=== PATIENT | male | born 1980 | race American Indian/Alaskan Native ===

== ENCOUNTER 2019-05-06 13:15 | Emergency (ER) | payer SELFPAY ==
[2019-05-06 13:30] VITALS: BP 140/97
--- NOTE | 2019-05-06 13:39 | Event Note ---
ED Screening Note Date of service: 05/06/19 Time: 13:37 ED Screening Note: This is a 38 y.o. M. that presents to the ER with nausea and vomiting for 3 days. Reports weakness and decreased appetite. Denies abdominal pain, diarrhea, chest pain, or palpitations. This initial assessment/diagnostic orders/clinical plan/treatment(s) is/are subject to change based on patients health status, clinical progression and re- assessment by fellow clinical providers in the ED. Further treatment and workup at subsequent clinical providers discretion. Patient/guardian urged not to elope from the ED as their condition may be serious if not clinically assessed and managed. Initial orders include: Labs
[2019-05-06] MEDS ORDERED: NACL 0.9% 1000 ML 1,000 ML IV ONE (14:10)
[2019-05-06] MEDS ORDERED: ZOFRAN IV ONE (14:11)
--- NOTE | 2019-05-06 14:14 | Emergency Department Report ---
- General Chief complaint: Nausea/Vomiting/Diarrhea Stated complaint: WEAKNESS/VOMIT BLOOD Time Seen by Provider: 05/06/19 13:37 Source: patient, family Mode of arrival: Ambulatory Limitations: No Limitations - History of Present Illness Initial comments: Mr. Doe is a healthy 38-year-old male without significant past medical history for the past several days has felt generally weak. Has been coughing up blood. No vomiting. Poor appetite. Denies abdominal pain. Denies chest pain. Positive generalized malaise. MD Complaint: generalized weakness -: Gradual, days(s) (3) Location: generalized Severity: moderate Consistency: constant Improves with: none Worsens with: exertion Context: recent illness Associated Symptoms: other (coughing up blood) - Related Data Previous Rx's Medication Instructions Recorded Last Taken Type HYDROcodone/APAP 10-325 [[place] 1 each PO Q6HR PRN #12 tablet 12/30/13 Unknown Rx 10/325] Ondansetron [Zofran Odt] 4 mg PO Q6H PRN #8 tab.rapdis 12/30/13 Unknown Rx Doxycycline Hyclate [Doxycycline 100 mg PO Q12HR 7 Days #14 tab 05/06/19 Unknown Rx Hyclate TAB] Promethazine [Phenergan] 25 mg PO Q6HR PRN #10 tab 05/06/19 Unknown Rx Allergies Allergy/AdvReac Type Severity Reaction Status Date / Time No Known Allergies Allergy Unverified 12/30/13 15:16 ED Review of Systems ROS: Stated complaint: WEAKNESS/VOMIT BLOOD Other details as noted in HPI Comment: All other systems reviewed and negative Constitutional: malaise Respiratory: cough Gastrointestinal: nausea. denies: abdominal pain, vomiting ED Past Medical Hx - Past Medical History Previous Medical History?: No - Surgical History Past Surgical History?: Yes Additional Surgical History: thumb - Social History Smoking Status: Unknown if ever smoked Substance Use Type: None - Medications Home Medications: Home Medications Medication Instructions Recorded Confirmed Last Taken Type HYDROcodone/APAP 10-325 [[place] 1 each PO Q6HR PRN #12 tablet 12/30/13 Unknown Rx 10/325] Ondansetron [Zofran Odt] 4 mg PO Q6H PRN #8 tab.rapdis 12/30/13 Unknown Rx Doxycycline Hyclate [Doxycycline 100 mg PO Q12HR 7 Days #14 tab 05/06/19 Unknown Rx Hyclate TAB] Promethazine [Phenergan] 25 mg PO Q6HR PRN #10 tab 05/06/19 Unknown Rx ED Physical Exam - General Limitations: No Limitations General appearance: alert, in no apparent distress - Head Head exam: Present: atraumatic, normocephalic - Eye Eye exam: Present: normal appearance - ENT ENT exam: Present: mucous membranes moist - Neck Neck exam: Present: normal inspection, full ROM - Respiratory Respiratory exam: Present: normal lung sounds bilaterally. Absent: respiratory distress, wheezes, rales, rhonchi - Cardiovascular Cardiovascular Exam: Present: regular rate, normal rhythm, normal heart sounds. Absent: systolic murmur, diastolic murmur, rubs, gallop - GI/Abdominal GI/Abdominal exam: Present: soft, normal bowel sounds. Absent: distended, tenderness, guarding, rebound - Rectal Rectal exam: Present: deferred - Extremities Exam Extremities exam: Present: normal inspection - Back Exam Back exam: Present: normal inspection - Neurological Exam Neurological exam: Present: alert, oriented X3 - Psychiatric Psychiatric exam: Present: normal affect, normal mood - Skin Skin exam: Present: warm, dry, intact, normal color. Absent: rash ED Course Vital Signs 05/06/19 13:24 Temperature 98.7 F Pulse Rate 50 L Respiratory 18 Rate Blood Pressure 140/97 O2 Sat by Pulse 97 Oximetry ED Medical Decision Making - Lab Data Result diagrams: 05/06/19 14:05 05/06/19 13:56 - Radiology Data Radiology results: report reviewed CXR NAP according to radiology - Medical Decision Making acute bronchitis, due to severe symptoms, antibiotics are indicated rx: doxycycline, promethazine Critical care attestation.: If time is entered above; I have spent that time in minutes in the direct care of this critically ill patient, excluding procedure time. ED Disposition Clinical Impression: Acute bronchitis Disposition: DC-01 TO HOME OR SELFCARE Is pt being admited?: No Does the pt Need Aspirin: No Condition: Stable Instructions: Acute Bronchitis (ED) Prescriptions: Doxycycline Hyclate [Doxycycline Hyclate TAB] 100 mg PO Q12HR 7 Days #14 tab Promethazine [Phenergan] 25 mg PO Q6HR PRN #10 tab PRN Reason: Nausea Referrals: PRIMARY CARE, [Primary Care Provider] - 3-5 Days DAVID ROWELL MD [Staff Physician] - 3-5 Days Forms: Work/School Release Form(ED)
[2019-05-06 14:34] LABS: Basophils # (Auto) 0.1 K/mm3 (0.0-0.1); Basophils % (Auto) 0.7 % (0.0-1.8); Eosinophils % (Auto) 0.1 % (0.0-4.3); Hematocrit 47.2 % (35.5-45.6); Hemoglobin 15.4 gm/dl (11.8-15.2); Lymphocytes % (Auto) 16.3 % (13.4-35.0); Mean Corpuscular HGB Conc 33 % (32-34); Mean Corpuscular Volume 89 fl (84-94); Monocytes # (Auto) 1.3 K/mm3 (0.0-0.8); Platelet Count 313 K/mm3 (140-440); Red Blood Count 5.31 M/mm3 (3.65-5.03); Red Cell Distribution Width 13.5 % (13.2-15.2)
[2019-05-06 14:36] LABS: Alanine Aminotransferase 55 units/L (7-56); Albumin 4.4 g/dL (3.9-5); BUN/Creatinine Ratio 16; Blood Urea Nitrogen 19 mg/dL (9-20); Calcium 9.2 mg/dL (8.4-10.2); Hemolysis Index 14
--- NOTE | 2019-05-06 15:05 | XRay Report ---
CHEST 1 VIEW 05/06/2019 2:14 PM INDICATION / CLINICAL INFORMATION: coughing up blood. COMPARISON: None available. FINDINGS: SUPPORT DEVICES: None. HEART / MEDIASTINUM: No significant abnormality. LUNGS / PLEURA: No significant pulmonary or pleural abnormality. No pneumothorax. ADDITIONAL FINDINGS: No significant additional findings. IMPRESSION: 1. No acute findings. Signer Name: Carlos Manuel Mccauley MD Signed: 05/06/2019 3:00 PM Workstation Name: [id number]
== END 2019-05-06 16:00 | disposition home or self-care (01) ==
LOC: ED 13:15
DX: J20.9 Acute bronchitis, unspecified (principal); R11.2 Nausea with vomiting, unspecified; Z79.899 Other long term (current) drug therapy
CPT/HCPCS: 36415; 71045; 80053; 85025; 96361; 96374; 99284; J2405; J7030